=== PATIENT | male | born 1950 | race Caucasian/White ===

== ENCOUNTER → 2021-12-01 | Day surgery (SDC) | payer MEDICARE, BC ==
[~2021-12-01] MED LIST: Bupivacaine 0.25% 10 ML SDV ONE; Ketorolac 30 MG/ML SDV IVPUSH ONE; Lactated Ringers 1,000 ML IV ONE; Lidocaine 1% PF 2 ML SDV INJECT ONE; Midazolam 1 MG/ML 2 ML SDV IV ONE; Morphine 8 MG, EPINEPHrine 0.3 MG, Cefuroxime 750 MG, Ketorolac 30 MG, Sodium Chloride ... SCH; Ondansetron 4 MG/2 ML SDV IV ONE; Pregabalin 25 MG Cap PO ONE; Propofol 200 MG/20 ML SDV IV ONE; Tranexamic Acid 1,000 MG/10 ML Vial IV ONE; Triamcinolone Acetonide 40 MG/ML 1 ML SDV ONE; Vancomycin 1 GM SDV ONE; ceFAZolin 2 GM Vial ONE; fentaNYL 100 MCG/2 ML SDV IV ONE; oxyCODONE ER 10 MG TAB.ER PO ONE
== END ==
LOC: JD.SDS 06:00
DX: M17.0 Bilateral primary osteoarthritis of knee (principal); E78.00 Pure hypercholesterolemia, unspecified; R73.03 Prediabetes; G89.29 Other chronic pain; Z79.899 Other long term (current) drug therapy; Z98.890 Other specified postprocedural states; Z87.891 Personal history of nicotine dependence; Z86.16 Personal history of COVID-19; I25.10 Atherosclerotic heart disease of native coronary artery without angina pectoris
CPT/HCPCS: 20610; 27447; 97110; 97116; 97161; A9270; J0171; J0690; J0697; J1885; J2250; J2270; J2405; J2704; J3010; J3301; J3370; J3490; J7120

== ENCOUNTER 2022-03-09 10:10 | Day surgery (SDC) | payer MEDICARE, BC ==
[~2022-03-09 10:10] MED LIST changes: +Acetaminophen 325 MG Tab PO SCH; -Bupivacaine 0.25% 10 ML SDV ONE; +EPINEPHrine 1 MG/ML SDV ONE; -Ketorolac 30 MG/ML SDV IVPUSH ONE; -Lactated Ringers 1,000 ML IV ONE; +Lactated Ringers 1,000 ML IV SCH; -Lidocaine 1% PF 2 ML SDV INJECT ONE; +Lidocaine 1%/Sod Bicarbonate in NS 8.4% 1 ML Syringe IDERM PRN; -Midazolam 1 MG/ML 2 ML SDV IV ONE; +Morphine 8 MG, EPINEPHrine 0.3 MG, Cefuroxime 750 MG, Ketorolac 30 MG, Sodium Chloride ... PRN; -Morphine 8 MG, EPINEPHrine 0.3 MG, Cefuroxime 750 MG, Ketorolac 30 MG, Sodium Chloride ... SCH; -Ondansetron 4 MG/2 ML SDV IV ONE; -Pregabalin 25 MG Cap PO ONE; +Pregabalin 25 MG Cap PO SCH; -Propofol 200 MG/20 ML SDV IV ONE; +Ropivacaine 0.5% 5 MG/ML 30 ML SDV ONE; +Sodium Chloride 0.9% 10 ML Syringe FLUSH PRN; +Sodium Chloride 0.9% 10 ML Syringe FLUSH SCH; -Tranexamic Acid 1,000 MG/10 ML Vial IV ONE; -Triamcinolone Acetonide 40 MG/ML 1 ML SDV ONE; -Vancomycin 1 GM SDV ONE; -ceFAZolin 2 GM Vial ONE; -fentaNYL 100 MCG/2 ML SDV IV ONE; -oxyCODONE ER 10 MG TAB.ER PO ONE; +oxyCODONE ER 10 MG TAB.ER PO SCH
[2022-03-09] MEDS ORDERED: fentaNYL 100 MCG/2 ML SDV ONE (10:29)
[2022-03-09] MEDS ORDERED: Midazolam 1 MG/ML 2 ML SDV ONE (10:29)
[2022-03-09] MEDS ORDERED: Ondansetron 4 MG/2 ML SDV ONE (10:29)
[2022-03-09] MEDS ORDERED: Propofol 200 MG/20 ML SDV ONE (10:29)
[2022-03-09] MEDS ORDERED: Lidocaine 1% 5 ML VIAL ONE (10:29)
[2022-03-09] MEDS ORDERED: Ketorolac 30 MG/ML SDV ONE (10:31)
[2022-03-09] MEDS ORDERED: ceFAZolin 2 GM Vial ONE (10:32)
[2022-03-09] MEDS ORDERED: HYDROmorphone 0.5 MG/0.5 ML Syringe IVPUSH PRN (10:49)
[2022-03-09] MEDS ORDERED: Ondansetron 4 MG/2 ML SDV IVPUSH PRN (10:49)
[2022-03-09] MEDS ORDERED: fentaNYL 100 MCG/2 ML SDV IVPUSH PRN (10:49)
[2022-03-09] MEDS ORDERED: Vancomycin 1 GM SDV ONE (11:19)
[2022-03-09] MEDS ORDERED: Tranexamic Acid 1,000 MG/10 ML Vial ONE (11:19)
[2022-03-09] MEDS ORDERED: ePHEDrine 50 MG/ML SDV ONE (12:57)
[2022-03-09] MEDS ORDERED: Phenylephrine HCl In 0.9% NaCl 1 MG/10 ML Vial ONE (13:00)
[2022-03-09] MEDS ORDERED: oxyCODONE 5 MG Tab PO PRN (14:22)
== END 2022-03-09 16:45 | disposition home or self-care (01) ==
LOC: JD.SDS 10:10
PROVIDERS: ATTEND Orthopaedic Surgery
DX: M17.11 Unilateral primary osteoarthritis, right knee (principal); U07.1 COVID-19; I10 Essential (primary) hypertension; E78.00 Pure hypercholesterolemia, unspecified; D72.829 Elevated white blood cell count, unspecified; R73.03 Prediabetes; Z79.899 Other long term (current) drug therapy; Z98.890 Other specified postprocedural states; Z87.891 Personal history of nicotine dependence; Z79.82 Long term (current) use of aspirin
CPT/HCPCS: 0055T; 27447; 64447; 73560; 97116; 97161; A9270; C1713; C1776; J0171; J0690; J0697; J1885; J2250; J2270; J2405; J2704; J2795; J3010; J3370; J7120; 01402; 64450; J3490